=== PATIENT | female | born 1960 | race Caucasian/White ===

== ENCOUNTER 2016-07-21 09:39 | Emergency (ER) | payer OTHER ==
--- NOTE | 2016-07-21 11:46 | DIAGNOSTIC IMAGING REPORT ---
PROCEDURE: CT HEAD WITHOUT CONTRAST INDICATION: HEADACHE TECHNIQUE: Axial CT images were acquired through the head. Coronal and sagittal reformations were created. COMPARISON: None. FINDINGS: There is a large left middle cerebral artery infarction. There is mass effect with 1 cm of midline shift from left to right. There is early uncal herniation. The area of infarction involves one third of the left hemisphere. IMPRESSION: 1. Large left middle cerebral ischemic infarct with midline shift and uncal herniation 2. Findings discussed with Hamilton at 11:[address] scans at this facility use dose modulation, iterative reconstruction, and/or weight-based dosing when appropriate to reduce radiation dose to as low as reasonably achievable.
--- NOTE | 2016-07-21 11:48 | DIAGNOSTIC IMAGING REPORT ---
PROCEDURE: XR CHEST 2 VIEW INDICATION: COUGH TECHNIQUE: PA and lateral views. COMPARISON: Chest 01/03/2010 FINDINGS: Lungs are clear. Heart and mediastinum are normal. Thorax is normal. IMPRESSION: 1. Negative chest.
--- NOTE | 2016-07-21 12:03 | ED CLINICAL REPORT ---
Clinical Report - Physicians/Mid Levels [facility] [address] [place] [address] 07/21/2016 9:45 Patient: JOAQUIN CARRIZALES Time Seen: 10:35 Jul 21 2016. Arrived- By private vehicle. Historian- patient. CPT: Critical care < 74 min plus (#[id number]) and 30-74 min plus (#[id number]). HISTORY OF PRESENT ILLNESS Chief Complaint: HEADACHE. Is still present. 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 Onset during light activity. It is described as "pain". Located in the left hemicranial, left parietal and left temporal region. At its maximum, severity described as 8 / 10. When seen in the E.D., severity described as 8 / 10. Modifying factors: relieved by nothing. Not worsened by anything. No preceding symptoms, blurred vision, photophobia, associated nausea or numbness. No weakness or vomiting. (Pt has had flu symptoms over the past week including cough, sore throat, body aches and KRISHNAMURTHY. All the flu symptoms have faded except the KRISHNAMURTHY.). Similar symptoms previously: Milder. Diagnosis: headache (Chronic KRISHNAMURTHY). Recent medical care: Not recently seen/assessed. REVIEW OF SYSTEMS No fever, sinus pressure, ear pain, head injury or chest pain. No difficulty breathing, cough, abdominal pain, diarrhea or pain with urination. No skin rash, enlarged lymph nodes or back pain. The patient has had muscle aches and a sore throat. Confusion spell in [place] 2 months ago. Has appointment for this coming up. All systems otherwise negative, except as recorded above. PAST HISTORY Dementia. ADDITIONAL SURGERIES: Knee Surgery. Medications: None. Allergies: Narcotics. SOCIAL HISTORY Never smoker. No alcohol use or drug use. ADDITIONAL NOTES The nursing notes have been reviewed. PHYSICAL EXAM Vital Signs: 07/21/2016 09:51 BP: 139/60. HR: 73. RR: 14. O2 saturation: 100%. Temp: 97.7 F. Pain level now: 04/21. Appearance: Alert. Appears to be in pain. Patient in moderate distress. Eyes: Pupils equal, round and reactive to light. Eyes normal inspection. ENT: Ears normal. Nose normal. Pharynx normal. Neck: Normal inspection. Neck supple. CVS: Normal heart rate and rhythm. Heart sounds normal. Pulses normal. Respiratory: No respiratory distress. Breath sounds normal. Abdomen: Soft and nontender. No organomegaly. Back: Normal inspection. Skin: Skin warm. Normal skin color. No rash. Extremities: Extremities exhibit normal ROM. No lower extremity edema. Neuro: Oriented X 3. Alert. Mood/affect normal. Speech normal. Cranial nerves normal (as tested). No cerebellar findings. No motor deficit. No sensory deficit. Reflexes normal. NIH Stroke Scale: score 1. Level of Consciousness: drowsy (1). LOC Questions: both (0). LOC Commands: both (0). Best gaze: normal (0). Visual field loss: none (0). Facial palsy: normal (0). Limb ataxia: none (0). Sensory loss: none (0). Aphasia: none (0). Dysarthria: normal (0). LABS, X-RAYS, AND EKG Chest X-ray: Normal Chest X-Ray. CT Head: (Large left middle cerebral artery infarct: 1/3 of the hemisphere. Has 1 cm midline shift.). Head CT performed without contrast. The study was interpreted by the radiologist and discussed with the radiologist. Laboratory Tests: CBC w Diff: (JOSEPH: 07/21/2016 11:04) ( MsgRcvd 07/21/2016 11:38) Final results Test Result Flag Units (Reference) WHITE BLOOD COUNT 8.8 K/uL (4.5-11.5) RED BLOOD COUNT 4.67 M/uL (4.00-5.20) HEMOGLOBIN 13.6 gm/dL (12.0-16.0) HEMATOCRIT 41.0 % (36.0-46.0) MEAN CELL VOLUME 88 fL (80-100) MEAN CORPUSCULAR HGB 29 pg (26-34) MEAN CORPUSCULAR HGB CONC 33 g/dL (31-37) RED CELL DISTRIBUTION WIDTH 14.0 % (11.6-14.8) PLATELET COUNT 246 K/uL (150-400) NEUTROPHIL % 79.5 H % (50-75) LYMPH % 13.0 L % (25-40) MONO % 5.3 % (3-14) EOSINOPHIL % 1.9 % (0-4) BASOPHIL % 0.3 % (0-2) SED RATE WESTERGREN 45 H mm/hr (0-30) CHEM 13 PANEL: (JOSEPH: 07/21/2016 11:04) ( MsgRcvd 07/21/2016 11:35) Final results Test Result Flag Units (Reference) GLUCOSE 103 mg/dL (70-110) BUN 14 mg/dL (7-18) CREATININE 0.9 mg/dL (0.6-1.3) Estimated GFR >60 mL/min Estimated GFR- >60 mL/min Note: Persistent reduction over 3 months in eGFR<60 mL/min/1.73 m2 defines CKD. Patients with eGFR values>=60 mL/min/1.73 m2 may also have CKD if evidence ofpersistent proteinuria. Additional information may be foundat www.kidney.org. SODIUM 140 mmol/L (136-145) POTASSIUM 4.1 mmol/L (3.5-5.1) CHLORIDE 106 mmol/L (98-107) CARBON DIOXIDE 30 mmol/L (21-32) CALCIUM 8.4 L mg/dL (8.5-10.1) TOTAL PROTEIN 7.1 g/dL (6.4-8.2) ALBUMIN 3.4 g/dL (3.3-5.0) BILIRUBIN, TOTAL 0.5 mg/dL (0.0-1.0) ALKALINE PHOSPHATASE 70 U/L (46-116) AST (SGOT) 12 L U/L (15-37) ALT (SGPT) 24 U/L (12-78) MAGNESIUM 2.3 mg/dL (1.8-2.4) CPK 43 U/L (24-260) TROPONIN I <0.05 ng/mL (0.00-1.5) TROPONIN REFERENCE RANGE:<0.1 NEGATIVE0.1-1.5 INDETERMINANT>1.5 POSITIVE THYROID STIMULATING HORMONE 1.660 uIU/mL (0.30-3.74) Rapid Influenza Screen: (JOSEPH: 07/21/2016 11:32) ( MsgRcvd 07/21/2016 11:49) Final results SPECIMEN DESCRIPTION: SWAB Test Result Flag Units (Reference) RAPID INFLUENZA SCREEN DATE: 07/21/16 INFLUENZA A: NEGATIVE SCREEN FOR INFLUENZA A INFLUENZA B: NEGATIVE SCREEN FOR INFLUENZA B . PROGRESS AND PROCEDURES Course of Care: 12:23 07/21/16. Discussed with Dr Chau, stroke team fellow with Dr Santacruz. Will accept transfer after look at films and decide on air vs ground. 13:52 07/21/16. call back from [facility] with acceppting of transfer to the [facility]. Recommends ground transport. Recommends no steroids due to suspicion of lymphoma. Patient/family counseled. Disposition: Transferred to [facility]. CLINICAL IMPRESSION Large left MCA infarct with mid-line shift. (Electronically signed by Tommy Villasenor MD 07/22/2016 13:44)
--- NOTE | 2016-07-21 12:03 | ED NURSING NOTES ---
Clinical Report - Nurses [facility] [address] [place] [address] 07/21/2016 9:45 Patient: JOAQUIN CARRIZALES TRIAGE Triage time 0951 AM. Chief Complaint: HEADACHE. --09:57 Froy Coronado R.N. 09:51 07/21/16. BP: 139/60. HR: 73. RR: 14. O2 saturation: 100%. Temp: 97.7 F (oral). Pain level now: 04/21. --09:57 Froy Coronado R.N. Weight: 81.6 kg stated. Height/Length: 62 inches Per Patient. BMI: 32.9. --09:53 Froy Coronado R.N. Medications None. --09:54 Froy Coronado R.N. Allergies Narcotics. --09:56 Froy Coronado R.N. History Arrived by private vehicle. Historian: patient. Accompanied by family. This started about 4 days. ( Patient presents to the ED with symptoms of a left sided headache x 4 days.). 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 SOCIAL HX: Never smoker. Alcohol use. (no). History of drug use. (no). FALL RISK ASSESSMENT: Fall risk assessment completed. No fall risk identified. NUTRITIONAL RISK ASSESSMENT: The nutritional risk assessment revealed no deficiencies. FUNCTIONAL ASSESSMENT: Functional assessment: no impairments noted. LEARNING NEEDS ASSESSMENT: The learning needs assessment revealed no barriers. SKIN INTEGRITY ASSESSMENT: Skin integrity risk assessment completed. No skin integrity risk identified. --09:57 Froy Coronado R.N. PROBLEMS: Dementia. --09:56 Froy Coronado R.N. ADDITIONAL SURGERIES: Knee Surgery. --09:56 Froy Coronado R.N. PHYSICAL ASSESSMENT Ambulatory to room. GENERAL / NEURO / PSYCH: Alert. Oriented X 4. Appears in no acute distress. Speech within normal limits. ( "worsening dementia."). HEENT: No facial asymmetry noted. Pupils equal, round and reactive to light. RESPIRATORY: Respirations not labored. Breath sounds within normal limits. CVS: Capillary refill less than 2 seconds. GI / : Abdomen soft and nontender. SKIN: Skin is warm and dry. --09:57 Froy Coronado R.N. GENERAL / NEURO / PSYCH: Awake. Oriented X 4. Alert. Speech normal. Mood/affect normal. No cerebellar findings. NIH Stroke Scale: score 0. Performed at 0951 AM. Level of Consciousness: alert (0). LOC Questions: both (0). LOC Commands: both (0). Best gaze: normal (0). Visual field loss: none (0). Facial palsy: normal (0). Motor arm: no drift right arm (0) and no drift left arm (0). Motor leg: no drift right leg (0) and no drift left leg (0). Limb ataxia: none (0). Sensory loss: none (0). Aphasia: none (0). Dysarthria: normal (0). Extinction and inattention: none (0). --12:06 Froy Coronado R.N. NURSING PROGRESS NOTES 11:07/21/2016 Site #1 started via IV in the right antecubital space with an 18g angiocath; one attempt. Blood drawn. Labeled in the presence of the patient and sent to the lab. Saline lock flushed with 10 mL saline. --11:09 Froy Coronado R.N. 11:09 07/21/2016 Ativan (LORazepam) IVP 0.5 mg given over 2 minute(s) via site #1. Sedative warning given to the patient. IV patency established. IV site checked: no pain, redness, or swelling. IV flushed thoroughly pre- and post-medication administration. IVP given by RN. --11:09 Froy Coronado R.N. 11:48 07/21/16. BP: 117/69. HR: 73. RR: 16. O2 saturation: 99%. --11:49 Froy Coronado R.N. The patient is calm and resting quietly. Overall patient status is improved- she states feels better. --11:49 Froy Coronado R.N. The patient reports no complaints and she is calm, resting quietly and sleeping. Overall patient status is improved- she states feels better. GENERAL / NEURO / PSYCH: The patient reports left-sided headache is still present but improving and is currently constant. Alert. Oriented X 4. HEENT: Pupils equal, round and reactive to light. RESPIRATORY: No respiratory distress. SKIN: Skin is warm and dry. Skin color within normal limits. --12:09 Froy Coronado R.N. The patient is calm and resting quietly. GENERAL / NEURO / PSYCH: Alert. Oriented X 4. HEENT: Pupils equal, round and reactive to light. RESPIRATORY: No respiratory distress. SKIN: Skin is warm and dry. Skin color within normal limits. --12:47 Froy Coronado R.N. 12:47 07/21/16. BP: 132/61. HR: 72. RR: 16. O2 saturation: 99%. Pain level now: 04/21. --12:47 Froy Coronado R.N. Informed about reason for wait. --13:18 Noelle Eagle R.N. The patient is resting quietly and sleeping. Call light placed in reach. --13:19 Noelle Eagle R.N. 13:19 07/21/16. BP: 123/68. HR: 74. RR: 16. O2 saturation: 99%. --13:19 Noelle Eagle R.N. 13:59 07/21/16. BP: 135/80. HR: 70. RR: 16. O2 saturation: 98%. Pain level now: 04/21. --14:00 Froy Coronado R.N. The patient is calm, resting quietly and sleeping. GENERAL / NEURO / PSYCH: The patient reports headache. Alert. Oriented X 4. HEENT: Pupils equal, round and reactive to light. RESPIRATORY: No respiratory distress. SKIN: Skin is warm and dry. Skin color within normal limits. --14:00 Froy Coronado R.N. 14:56 07/21/2016 Ofirmev * IV 650mg --14:56 Froy Coronado R.N. DISPOSITION / DISCHARGE Departure time: 1452 PM. The goals identified in the patient's plan of care were met. Transferred to [facility]. Summary of care provided to transport team and transfer facility (1453 PM). Transported via ambulance by nurse, EMS and transport team with monitor and IV. ( Patient awake, alert, and oriented upon transport. Report given to AKBAR Peres with [facility].). --14:54 Froy Coronado R.N. Locked/Released at 07/21/2016 14:57 by Froy Coronado R.N.
--- NOTE | 2016-07-21 12:03 | ED CLINICAL REPORT ---
Clinical Report - Physicians/Mid Levels [facility] [address] [place] [address] 07/21/2016 9:45 Patient: JOAQUIN CARRIZALES Time Seen: 10:35 Jul 21 2016. Arrived- By private vehicle. Historian- patient. CPT: Critical care < 74 min plus (#[id number]) and 30-74 min plus (#[id number]). HISTORY OF PRESENT ILLNESS Chief Complaint: HEADACHE. Is still present. 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 Onset during light activity. It is described as "pain". Located in the left hemicranial, left parietal and left temporal region. At its maximum, severity described as 8 / 10. When seen in the E.D., severity described as 8 / 10. Modifying factors: relieved by nothing. Not worsened by anything. No preceding symptoms, blurred vision, photophobia, associated nausea or numbness. No weakness or vomiting. (Pt has had flu symptoms over the past week including cough, sore throat, body aches and KRISHNAMURTHY. All the flu symptoms have faded except the KRISHNAMURTHY.). Similar symptoms previously: Milder. Diagnosis: headache (Chronic KRISHNAMURTHY). Recent medical care: Not recently seen/assessed. REVIEW OF SYSTEMS No fever, sinus pressure, ear pain, head injury or chest pain. No difficulty breathing, cough, abdominal pain, diarrhea or pain with urination. No skin rash, enlarged lymph nodes or back pain. The patient has had muscle aches and a sore throat. Confusion spell in [place] 2 months ago. Has appointment for this coming up. All systems otherwise negative, except as recorded above. PAST HISTORY Dementia. ADDITIONAL SURGERIES: Knee Surgery. Medications: None. Allergies: Narcotics. SOCIAL HISTORY Never smoker. No alcohol use or drug use. ADDITIONAL NOTES The nursing notes have been reviewed. PHYSICAL EXAM Vital Signs: 07/21/2016 09:51 BP: 139/60. HR: 73. RR: 14. O2 saturation: 100%. Temp: 97.7 F. Pain level now: 04/21. Appearance: Alert. Appears to be in pain. Patient in moderate distress. Eyes: Pupils equal, round and reactive to light. Eyes normal inspection. ENT: Ears normal. Nose normal. Pharynx normal. Neck: Normal inspection. Neck supple. CVS: Normal heart rate and rhythm. Heart sounds normal. Pulses normal. Respiratory: No respiratory distress. Breath sounds normal. Abdomen: Soft and nontender. No organomegaly. Back: Normal inspection. Skin: Skin warm. Normal skin color. No rash. Extremities: Extremities exhibit normal ROM. No lower extremity edema. Neuro: Oriented X 3. Alert. Mood/affect normal. Speech normal. Cranial nerves normal (as tested). No cerebellar findings. No motor deficit. No sensory deficit. Reflexes normal. NIH Stroke Scale: score 1. Level of Consciousness: drowsy (1). LOC Questions: both (0). LOC Commands: both (0). Best gaze: normal (0). Visual field loss: none (0). Facial palsy: normal (0). Limb ataxia: none (0). Sensory loss: none (0). Aphasia: none (0). Dysarthria: normal (0). LABS, X-RAYS, AND EKG Chest X-ray: Normal Chest X-Ray. CT Head: (Large left middle cerebral artery infarct: 1/3 of the hemisphere. Has 1 cm midline shift.). Head CT performed without contrast. The study was interpreted by the radiologist and discussed with the radiologist. Laboratory Tests: CBC w Diff: (JOSEPH: 07/21/2016 11:04) ( MsgRcvd 07/21/2016 11:38) Final results Test Result Flag Units (Reference) WHITE BLOOD COUNT 8.8 K/uL (4.5-11.5) RED BLOOD COUNT 4.67 M/uL (4.00-5.20) HEMOGLOBIN 13.6 gm/dL (12.0-16.0) HEMATOCRIT 41.0 % (36.0-46.0) MEAN CELL VOLUME 88 fL (80-100) MEAN CORPUSCULAR HGB 29 pg (26-34) MEAN CORPUSCULAR HGB CONC 33 g/dL (31-37) RED CELL DISTRIBUTION WIDTH 14.0 % (11.6-14.8) PLATELET COUNT 246 K/uL (150-400) NEUTROPHIL % 79.5 H % (50-75) LYMPH % 13.0 L % (25-40) MONO % 5.3 % (3-14) EOSINOPHIL % 1.9 % (0-4) BASOPHIL % 0.3 % (0-2) SED RATE WESTERGREN 45 H mm/hr (0-30) CHEM 13 PANEL: (JOSEPH: 07/21/2016 11:04) ( MsgRcvd 07/21/2016 11:35) Final results Test Result Flag Units (Reference) GLUCOSE 103 mg/dL (70-110) BUN 14 mg/dL (7-18) CREATININE 0.9 mg/dL (0.6-1.3) Estimated GFR >60 mL/min Estimated GFR- >60 mL/min Note: Persistent reduction over 3 months in eGFR<60 mL/min/1.73 m2 defines CKD. Patients with eGFR values>=60 mL/min/1.73 m2 may also have CKD if evidence ofpersistent proteinuria. Additional information may be foundat www.kidney.org. SODIUM 140 mmol/L (136-145) POTASSIUM 4.1 mmol/L (3.5-5.1) CHLORIDE 106 mmol/L (98-107) CARBON DIOXIDE 30 mmol/L (21-32) CALCIUM 8.4 L mg/dL (8.5-10.1) TOTAL PROTEIN 7.1 g/dL (6.4-8.2) ALBUMIN 3.4 g/dL (3.3-5.0) BILIRUBIN, TOTAL 0.5 mg/dL (0.0-1.0) ALKALINE PHOSPHATASE 70 U/L (46-116) AST (SGOT) 12 L U/L (15-37) ALT (SGPT) 24 U/L (12-78) MAGNESIUM 2.3 mg/dL (1.8-2.4) CPK 43 U/L (24-260) TROPONIN I <0.05 ng/mL (0.00-1.5) TROPONIN REFERENCE RANGE:<0.1 NEGATIVE0.1-1.5 INDETERMINANT>1.5 POSITIVE THYROID STIMULATING HORMONE 1.660 uIU/mL (0.30-3.74) Rapid Influenza Screen: (JOSEPH: 07/21/2016 11:32) ( MsgRcvd 07/21/2016 11:49) Final results SPECIMEN DESCRIPTION: SWAB Test Result Flag Units (Reference) RAPID INFLUENZA SCREEN DATE: 07/21/16 INFLUENZA A: NEGATIVE SCREEN FOR INFLUENZA A INFLUENZA B: NEGATIVE SCREEN FOR INFLUENZA B . PROGRESS AND PROCEDURES Course of Care: 12:23 07/21/16. Discussed with Dr Chau, stroke team fellow with Dr Santacruz. Will accept transfer after look at films and decide on air vs ground. 13:52 07/21/16. call back from [facility] with acceppting of transfer to the [facility]. Recommends ground transport. Recommends no steroids due to suspicion of lymphoma. Patient/family counseled. Disposition: Transferred to [facility]. CLINICAL IMPRESSION Large left MCA infarct with mid-line shift. (Electronically signed by Tommy Villasenor MD 07/22/2016 13:44)
--- NOTE | 2016-07-21 12:03 | ED ORDER SUMMARY ---
..... Patient: JOAQUIN CARRIZALES OrderSheet [facility] VisitID: [id number] [place] [address] 55y, F Registration Date/Time: 07/21/2016 ORDER SHEET Weight: 81.6 kg (stated) Allergies: Narcotics GENERAL ORDERS: CT Head wo Cont Urgent (10:48 07/21/2016 Scooby SINGH) (Ack 10:59 NHouse ER Tech1) (11:09 HOShaughnessy R.N.) Cardiac Panel Stat (10:49 07/21/2016 Scooby SINGH) (Ack 10:59 NHouse ER Tech1) (11:09 HOShaughnessy R.N.) TSH Urgent (10:49 07/21/2016 Scooby SINGH) (Ack 10:59 COouse ER Tech1) (11:09 HOShaughnessy R.N.) ESR Urgent (10:49 07/21/2016 Scooby SINGH) (Ack 10:59 COouse ER Tech1) (11:09 HOShaughnessy R.N.) Rapid Influenza Screen (Nasal Pharyngeal) (swab) Urgent (10:49 07/21/2016 Scooby SINGH) (Ack 10:59 COouse ER Tech1) (11:35 HOShaughnessy R.N.) (11:35 COouse ER Tech1) Chest 2V Urgent (10:52 07/21/2016 Scooby SINGH) (Ack 10:59 COouse ER Tech1) (11:09 HOShaughnessy R.N.) PT with INR Urgent (12:15 07/21/2016 Scooby SINGH) (12:16 COouse ER Tech1) PTT Urgent (12:15 07/21/2016 Scooby SINGH) (12:16 COouse ER Tech1) MEDICATION ORDERS: - (Tylenol 650 mg IV) (14:32 07/21/2016 Scooby SINGH) (14:56 HOShaughnessguille R.N.) IV FLUIDS: Ativan IV 0.5 mg (NOW) (10:48 07/21/2016 Scooby SINGH) (11:09 HOShaughnessy R.N.) IV Saline Lock (10:49 07/21/2016 Scooby SINGH) (11:09 Dagmar Bermudez) ORDER SHEET NOTES: [Electronically signed by Froy Coronado R.N. (14:57 07/21/2016)] [Electronically signed by Tommy Villasenor MD (13:44 07/22/2016)] [Electronically locked/signed by Froy Coronado R.N. (14:57 07/21/2016)]
--- NOTE | 2016-07-21 12:03 | ED ORDER SUMMARY ---
..... Patient: JOAQUIN CARRIZALES OrderSheet [facility] VisitID: [id number] [place] [address] 55y, F Registration Date/Time: 07/21/2016 ORDER SHEET Weight: 81.6 kg (stated) Allergies: Narcotics GENERAL ORDERS: CT Head wo Cont Urgent (10:48 07/21/2016 Scooby SINGH) (Ack 10:59 NHouse ER Tech1) (11:09 HOShaughnessy R.N.) Cardiac Panel Stat (10:49 07/21/2016 Scooby SINGH) (Ack 10:59 NHouse ER Tech1) (11:09 HOShaughnessy R.N.) TSH Urgent (10:49 07/21/2016 Scooby SINGH) (Ack 10:59 MIouse ER Tech1) (11:09 HOShaughnessy R.N.) ESR Urgent (10:49 07/21/2016 Scooby SINGH) (Ack 10:59 MIouse ER Tech1) (11:09 HOShaughnessy R.N.) Rapid Influenza Screen (Nasal Pharyngeal) (swab) Urgent (10:49 07/21/2016 Scooby SINGH) (Ack 10:59 MIouse ER Tech1) (11:35 HOShaughnessy R.N.) (11:35 MIouse ER Tech1) Chest 2V Urgent (10:52 07/21/2016 Scooby SINGH) (Ack 10:59 MIouse ER Tech1) (11:09 HOShaughnessy R.N.) PT with INR Urgent (12:15 07/21/2016 Scooby SINGH) (12:16 MIouse ER Tech1) PTT Urgent (12:15 07/21/2016 Scooby SINGH) (12:16 MIouse ER Tech1) MEDICATION ORDERS: - (Tylenol 650 mg IV) (14:32 07/21/2016 Scooby SINGH) (14:56 HOShaughnessguille R.N.) IV FLUIDS: Ativan IV 0.5 mg (NOW) (10:48 07/21/2016 Scooby SINGH) (11:09 HOShaughnessy R.N.) IV Saline Lock (10:49 07/21/2016 Scooby SINGH) (11:09 Dagmar Bermudez) ORDER SHEET NOTES: [Electronically signed by Froy Coronado R.N. (14:57 07/21/2016)] [Electronically signed by Tommy Villasenor MD (13:44 07/22/2016)] [Electronically locked/signed by Froy Coronado R.N. (14:57 07/21/2016)]
--- NOTE | 2016-07-21 12:03 | ED NURSING NOTES ---
Clinical Report - Nurses [facility] [address] [place] [address] 07/21/2016 9:45 Patient: JOAQUIN CARRIZALES TRIAGE Triage time 0951 AM. Chief Complaint: HEADACHE. --09:57 Froy Coronado R.N. 09:51 07/21/16. BP: 139/60. HR: 73. RR: 14. O2 saturation: 100%. Temp: 97.7 F (oral). Pain level now: 04/21. --09:57 Froy Coronado R.N. Weight: 81.6 kg stated. Height/Length: 62 inches Per Patient. BMI: 32.9. --09:53 Froy Coronado R.N. Medications None. --09:54 Froy Coronado R.N. Allergies Narcotics. --09:56 Froy Coronado R.N. History Arrived by private vehicle. Historian: patient. Accompanied by family. This started about 4 days. ( Patient presents to the ED with symptoms of a left sided headache x 4 days.). 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 (800mg). SOCIAL HX: Never smoker. Alcohol use. (no). History of drug use. (no). FALL RISK ASSESSMENT: Fall risk assessment completed. No fall risk identified. NUTRITIONAL RISK ASSESSMENT: The nutritional risk assessment revealed no deficiencies. FUNCTIONAL ASSESSMENT: Functional assessment: no impairments noted. LEARNING NEEDS ASSESSMENT: The learning needs assessment revealed no barriers. SKIN INTEGRITY ASSESSMENT: Skin integrity risk assessment completed. No skin integrity risk identified. --09:57 Froy Coronado R.N. PROBLEMS: Dementia. --09:56 Froy Coronado R.N. ADDITIONAL SURGERIES: Knee Surgery. --09:56 Froy Coronado R.N. PHYSICAL ASSESSMENT Ambulatory to room. GENERAL / NEURO / PSYCH: Alert. Oriented X 4. Appears in no acute distress. Speech within normal limits. ( "worsening dementia."). HEENT: No facial asymmetry noted. Pupils equal, round and reactive to light. RESPIRATORY: Respirations not labored. Breath sounds within normal limits. CVS: Capillary refill less than 2 seconds. GI / : Abdomen soft and nontender. SKIN: Skin is warm and dry. --09:57 Froy Coronado R.N. GENERAL / NEURO / PSYCH: Awake. Oriented X 4. Alert. Speech normal. Mood/affect normal. No cerebellar findings. NIH Stroke Scale: score 0. Performed at 0951 AM. Level of Consciousness: alert (0). LOC Questions: both (0). LOC Commands: both (0). Best gaze: normal (0). Visual field loss: none (0). Facial palsy: normal (0). Motor arm: no drift right arm (0) and no drift left arm (0). Motor leg: no drift right leg (0) and no drift left leg (0). Limb ataxia: none (0). Sensory loss: none (0). Aphasia: none (0). Dysarthria: normal (0). Extinction and inattention: none (0). --12:06 Froy Coronado R.N. NURSING PROGRESS NOTES 11:07/21/2016 Site #1 started via IV in the right antecubital space with an 18g angiocath; one attempt. Blood drawn. Labeled in the presence of the patient and sent to the lab. Saline lock flushed with 10 mL saline. --11:09 Froy Coronado R.N. 11:09 07/21/2016 Ativan (LORazepam) IVP 0.5 mg given over 2 minute(s) via site #1. Sedative warning given to the patient. IV patency established. IV site checked: no pain, redness, or swelling. IV flushed thoroughly pre- and post-medication administration. IVP given by RN. --11:09 Froy Coronado R.N. 11:48 07/21/16. BP: 117/69. HR: 73. RR: 16. O2 saturation: 99%. --11:49 Froy Coronado R.N. The patient is calm and resting quietly. Overall patient status is improved- she states feels better. --11:49 Froy Coronado R.N. The patient reports no complaints and she is calm, resting quietly and sleeping. Overall patient status is improved- she states feels better. GENERAL / NEURO / PSYCH: The patient reports left-sided headache is still present but improving and is currently constant. Alert. Oriented X 4. HEENT: Pupils equal, round and reactive to light. RESPIRATORY: No respiratory distress. SKIN: Skin is warm and dry. Skin color within normal limits. --12:09 Froy Coronado R.N. The patient is calm and resting quietly. GENERAL / NEURO / PSYCH: Alert. Oriented X 4. HEENT: Pupils equal, round and reactive to light. RESPIRATORY: No respiratory distress. SKIN: Skin is warm and dry. Skin color within normal limits. --12:47 Froy Coronado R.N. 12:47 07/21/16. BP: 132/61. HR: 72. RR: 16. O2 saturation: 99%. Pain level now: 04/21. --12:47 Froy Coronado R.N. Informed about reason for wait. --13:18 Noelle Eagle R.N. The patient is resting quietly and sleeping. Call light placed in reach. --13:19 Noelle Eagle R.N. 13:19 07/21/16. BP: 123/68. HR: 74. RR: 16. O2 saturation: 99%. --13:19 Noelle Eagle R.N. 13:59 07/21/16. BP: 135/80. HR: 70. RR: 16. O2 saturation: 98%. Pain level now: 04/21. --14:00 Froy Coronado R.N. The patient is calm, resting quietly and sleeping. GENERAL / NEURO / PSYCH: The patient reports headache. Alert. Oriented X 4. HEENT: Pupils equal, round and reactive to light. RESPIRATORY: No respiratory distress. SKIN: Skin is warm and dry. Skin color within normal limits. --14:00 Froy Coronado R.N. 14:56 07/21/2016 Ofirmev * IV 650mg --14:56 Froy Coronado R.N. DISPOSITION / DISCHARGE Departure time: 1452 PM. The goals identified in the patient's plan of care were met. Transferred to [facility]. Summary of care provided to transport team and transfer facility (1453 PM). Transported via ambulance by nurse, EMS and transport team with monitor and IV. ( Patient awake, alert, and oriented upon transport. Report given to AKBAR Peres with [facility].). --14:54 Froy Coronado R.N. Locked/Released at 07/21/2016 14:57 by Froy Coronado R.N.
--- NOTE | 2016-07-22 13:45 | ED DISCHARGE INSTRUCTIONS ---
Patient: JOAQUIN CARRIZALES General Instructions [facility] VisitID: [id number] [address] [place] [address] 55y, F Registration Date/Time: 07/21/2016 Large left MCA infarct with mid-line shift. (Electronically signed by Tommy Villasenor MD 07/22/2016 13:44)
--- NOTE | 2016-07-22 13:45 | ED DISCHARGE INSTRUCTIONS ---
Patient: JOAQUIN CARRIZALES General Instructions [facility] VisitID: [id number] [address] [place] [address] 55y, F Registration Date/Time: 07/21/2016 Large left MCA infarct with mid-line shift. (Electronically signed by Tommy Villasenor MD 07/22/2016 13:44)
--- NOTE | 2016-07-22 13:45 | ED MAR SUMMARY ---
..... Medication Administration Record [facility] [address] [place] [address] Patient: JOAQUIN CARRIZALES Visit ID: [id number] 55y, F Weight: 81.6 kg Height/Length: 62 in BMI: 32.9 ALLERGIES: Narcotics Given 11:09 07/21/2016 Froy Coronado R.N. Medication Administered: ATIVAN [IVP] (LORAZEPAM), Dose: 0.5 mg IVP over 2 minute(s), Site: #1 right . Medication Ordered: Ativan IV 0.5 mg (NOW). Start 14:56 07/21/2016 Froy Coronado RCarol Medication Administered: Ofirmev *, Dose: 650mg * IV. Medication Ordered: - (Tylenol 650 mg IV).
--- NOTE | 2016-07-22 13:45 | ED MED RECONCILIATION SUMMARY ---
Patient: JOAQUIN CARRIZALES Medication Reconciliation Report [facility] VisitID: [id number] [address] [place] [address] 55y, F Registration Date/Time: 07/21/2016 Weight: 81.6 kg Height/Length: 62 in. BMI: 32.9 ALLERGIES: Narcotics The patient's Home Medications are listed below: NONE. The source(s) of the original Home Medication information: Not obtained. The following Medications were given to the patient in the Emergency Department: Ativan [IVP] IVP 0.5 mg, administered: 07/21/2016 11:09:00 AM Ofirmev IV bolus 0, then 650mg, administered: 07/21/2016 2:56:00 PM The following Medications were prescribed to the patient: None.
--- NOTE | 2016-07-22 13:45 | ED MED RECONCILIATION SUMMARY ---
Patient: JOAQUIN CARRIZALES Medication Reconciliation Report [facility] VisitID: [id number] [address] [place] [address] 55y, F Registration Date/Time: 07/21/2016 Weight: 81.6 kg Height/Length: 62 in. BMI: 32.9 ALLERGIES: Narcotics The patient's Home Medications are listed below: NONE. The source(s) of the original Home Medication information: Not obtained. The following Medications were given to the patient in the Emergency Department: Ativan [IVP] IVP 0.5 mg, administered: 07/21/2016 11:09:00 AM Ofirmev IV bolus 0, then 650mg, administered: 07/21/2016 2:56:00 PM The following Medications were prescribed to the patient: None.
--- NOTE | 2016-07-22 13:45 | ED MAR SUMMARY ---
..... Medication Administration Record [facility] [address] [place] [address] Patient: JOAQUIN CARRIZALES Visit ID: [id number] 55y, F Weight: 81.6 kg Height/Length: 62 in BMI: 32.9 ALLERGIES: Narcotics Given 11:09 07/21/2016 Froy Coronado R.N. Medication Administered: ATIVAN [IVP] (LORAZEPAM), Dose: 0.5 mg IVP over 2 minute(s), Site: #1 right . Medication Ordered: Ativan IV 0.5 mg (NOW). Start 14:56 07/21/2016 Froy Coronado RCarol Medication Administered: Ofirmev *, Dose: 650mg * IV. Medication Ordered: - (Tylenol 650 mg IV).
== END 2016-07-21 14:57 | disposition short-term general hospital (02) ==
LOC: ED SRH 09:39
DX: I63.512 Cerebral infarction due to unspecified occlusion or stenosis of left middle cerebral artery (principal); F03.90 Unspecified dementia, unspecified severity, without behavioral disturbance, psychotic disturbance, mood disturbance, and anxiety; Z88.5 Allergy status to narcotic agent
CPT/HCPCS: 90100; 90616; 91400; 92610; 92720; 93140; 94001; 94060; 95059; 95150

== ENCOUNTER 2017-01-23 12:43 | Emergency (ER) | payer OTHER ==
--- NOTE | 2017-01-23 13:35 | DIAGNOSTIC IMAGING REPORT ---
PROCEDURE: XR CHEST 1 VIEW INDICATION: SEIZURE TECHNIQUE: Portable AP view 01:12 p.m. COMPARISON: Chest 07/21/2016 FINDINGS: Lungs are clear. Heart and mediastinum are normal. Thorax is normal. IMPRESSION: 1. Negative chest.
--- NOTE | 2017-01-23 13:42 | DIAGNOSTIC IMAGING REPORT ---
PROCEDURE: CT HEAD WITHOUT CONTRAST INDICATION: SEIZURE TECHNIQUE: Axial CT images were acquired through the head. Coronal and sagittal reformations were created. COMPARISON: None. FINDINGS: There is encephalomalacia in the left temporal region from the previous left middle cerebral infarct. No evidence of hemorrhage. Recent craniotomy on the left. The calvarium is intact. The paranasal sinuses and mastoid air cells are normally aerated. The extracranial soft tissues and orbits are normal. IMPRESSION: 1. No CT evidence of acute intracranial process. 2. Encephalomalacia in the left middle cerebral territory 3. Findings discussed with Daisy at 01:[address] scans at this facility use dose modulation, iterative reconstruction, and/or weight-based dosing when appropriate to reduce radiation dose to as low as reasonably achievable.
--- NOTE | 2017-01-23 15:32 | ED ORDER SUMMARY ---
..... Patient: JOAQUIN CARRIZALES OrderSheet [facility] VisitID: [id number] [place] [address] 56y, F Registration Date/Time: 01/23/2017 ORDER SHEET Weight: 79.3 kg (stated) Allergies: Narcotics GENERAL ORDERS: Chest 1V Urgent (12:53 01/23/2017 Tiffany SINGH) (Ack 12:57 Luis E) (13:36 LWhalen R.N.) Heel Sprayer First (Continuous) (12:53 01/23/2017 Tiffany SINGH) (13:24 LWhalen R.N.) CT Head wo Cont Urgent (12:53 01/23/2017 Tiffany SINGH) (Ack 12:57 Luis E) (13:36 LWhalen R.N.) CBC w Diff Urgent (12:54 01/23/2017 Tiffany SINGH) (Ack 12:57 Luis E) (13:36 LWhalen R.N.) CMP Urgent (12:54 01/23/2017 Tiffany SINGH) (Ack 12:57 Luis E) (13:36 LWhalen R.N.) UA-Culture if indicated Urgent (12:54 01/23/2017 Tiffany SINGH) (Ack 12:57 Luis E) (13:36 LWhalen R.N.) Amylase Urgent (12:54 01/23/2017 Tiffany SINGH) (Ack 12:57 Luis E) (13:36 LWhalen R.N.) Lipase Urgent (12:54 01/23/2017 Tiffany SINGH) (Ack 12:57 Luis E) (13:36 LWhalen R.N.) Urine Drug Screen Urgent (12:54 01/23/2017 Tiffany SINGH) (Ack 12:57 Luis E) (15:55 LWhalen R.N.) CPK Urgent (12:54 01/23/2017 Tiffany SINGH) (Ack 12:57 Luis E) (13:36 LWhalen R.N.) Troponin-I Urgent (12:54 01/23/2017 Tiffany SINGH) (Ack 12:57 Luis E) (13:36 LWhalen R.N.) Seizure Precautions (12:54 01/23/2017 Tiffany SINGH) (13:24 LWhaldebi R.N.) Soft Restraints per protocol (12:54 01/23/2017 Tiffany SINGH) (13:24 LWhalen R.N.) Pulse oximeter (12:54 01/23/2017 Tiffany SINGH) (13:24 LWhalen R.N.) EKG - ER Stat (12:54 01/23/2017 Tiffany SINGH) (Ack 12:57 Luis E) (13:48 AMcQuoid ER Tech1) Ethyl Alcohol Urgent (12:54 01/23/2017 Tiffany SINGH) (Ack 12:57 Luis E) (13:36 LWhalen R.N.) MEDICATION ORDERS: Keppra PO 500 mg (NOW) (15:29 01/23/2017 Tiffany SINGH) (15:55 LWhalen R.N.) IV FLUIDS: IV NS : initial bolus 500 mL (1000 mL/hr), then 125 mL/hr for 4h (NOW); Urgent (12:53 01/23/2017 Tiffany SINGH) (13:37 LWhalen R.N.) Valium IV 5 mg (HIGH ALERT MEDICATION, NOW) (12:54 01/23/2017 Tiffany SINGH) (13:11 LWhalen R.N.) ORDER SHEET NOTES: [Electronically signed by Bernard Conklin R.N. (15:59 01/23/2017)] [Electronically signed by Chaparro Villa MD (13:23 01/24/2017)] [Electronically locked/signed by Bernard Conklin R.N. (15:59 01/23/2017)]
--- NOTE | 2017-01-23 15:32 | ED CLINICAL REPORT ---
Clinical Report - Physicians/Mid Levels [facility] [address] [place] [address] 01/23/2017 12:44 Patient: CRISTINA ZAMBRANO Time Seen: 12:48. Arrived- By ambulance. Historian- EMS personnel. Evaluation limited The history of her events was obtained later from her family after they arrived in the emergency room. History limited by post-ictal state. Physical Exam limited by post-ictal state. HISTORY OF PRESENT ILLNESS Chief Complaint: SEIZURE. This occurred just prior to arrival. The patient has recovered. Seizure was witnessed. Had a single isolated seizure. Seizure activity lasted minutes. The patient lost consciousness. Generalized motor activity observed. No incontinence. Post-ictally has had confusion and speech difficulty. No injuries noted. 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 Family reports this was done about 6 months ago. She has never had seizures before. REVIEW OF SYSTEMS Unobtainable due to patient's altered mental status. PAST HISTORY Problems: CVA - Cerebrovascular Accident. Dementia. Additional Surgeries: Knee Surgery. Medications: Cbd. Eso . Ip-6 and inusitol. Frankincense. Beta1,3Dglucan. Cassandra-C Oral. Probiotic Daily Oral. Melatonin ER Oral. Magnesium Oral. Focus . PIC 200 Oral. Tumeric/curcumin. Selenium Oral. Cell stop. Enzyme Digest Oral. Calcium & Magnesium Carbonates Oral. Vit D-Vit E-Safflower Oil External. Womens 50+ Multi Vitamin/Min Oral. None. Allergies: Narcotics. SOCIAL HISTORY Never smoker. No alcohol use or drug use. She lives with spouse and a family member. Has good social support. FAMILY HISTORY Unable to obtain family medical history due to patient's unresponsiveness. ADDITIONAL NOTES The nursing notes have been reviewed. PHYSICAL EXAM Vital Signs: 01/23/2017 12:46 BP: 141/49. HR: 121. RR: 18. O2 saturation: 97%. Temp: 98.2 F. Have been reviewed. Appearance: Alert. Eyes: Pupils equal, round and reactive to light. No nystagmus. ENT: Normal ENT inspection. Pharynx normal. Neck: Normal inspection. Neck supple. No carotid bruit. CVS: Normal heart rate and rhythm. Heart sounds normal. Respiratory: No respiratory distress. Breath sounds normal. Abdomen: Soft and nontender. No organomegaly. Back: Normal inspection. Skin: Skin warm and dry. Normal skin color. Normal skin turgor. Extremities: Extremities exhibit normal ROM. No calf tenderness. No lower extremity edema. Neuro: Alert. Severely altered mental status: confused and stuporous. Patient has no response. LABS, X-RAYS, AND EKG EKG: Rate: 87. sinus arrhythmia. Changes present when compared to prior EKG. (PACs at that time - 19 December 2009). Chest X-ray: Normal Chest X-Ray. CT Head: (Name: Cristina Zambrano : 1960 MR#: [id number] Ordering Provider: CHAPARRO VILLA Exam(s): CT HEAD WITHOUT CONTRAST Date of Exam: 01/23/2017 __ PROCEDURE: CT HEAD WITHOUT CONTRAST INDICATION: SEIZURE TECHNIQUE: Axial CT images were acquired through the head. Coronal and sagittal reformations were created. COMPARISON: None. FINDINGS: There is encephalomalacia in the left temporal region from the previous left middle cerebral infarct. No evidence of hemorrhage. Recent craniotomy on the left. The calvarium is intact. The paranasal sinuses and mastoid air cells are normally aerated. The extracranial soft tissues and orbits are normal. IMPRESSION: 1. No CT evidence of acute intracranial process. 2. Encephalomalacia in the left middle cerebral territory). The study was interpreted contemporaneously by me and discussed with the radiologist. Laboratory Tests: UA-Culture if indicated: (JOSEPH: 01/23/2017 13:50) ( MsgRcvd 01/23/2017 14:11) Final results Test Result Flag Units (Reference) URINE COLOR YELLOW URINE APPEARANCE CLEAR URINE GLUCOSE NEGATIVE (NEGATIVE) URINE BILIRUBIN NEGATIVE (NEGATIVE) URINE KETONE NEGATIVE (NEGATIVE) URINE SPECIFIC GRAVITY 1.025 (1.010-1.030) URINE PH 6.0 (5.0-8.0) URINE PROTEIN TRACE (NEGATIVE) URINE UROBILINOGEN 0.2 EU/dL (0.2-1.0) URINE NITRITE NEGATIVE (NEGATIVE) URINE BLOOD NEGATIVE (NEGATIVE) URINE LEUK ESTERASE NEGATIVE (NEGATIVE) URINE RBC RARE rbc/hpf (0-1) URINE WBC 1-3 wbc/hpf (0-1) URINE EPITHELIAL CELLS 1-3 EPI/hpf (0-5) URINE BACTERIA FEW (1+) (NONE SEEN) URINE COMMENT CULT NOT INDICATED 25-50 HYALINE CASTS. 1+ AMORPHOUS URATES.URINE CULTURES ARE SET-UP BASED ON THE FOLLOWING CRITERIA:POSITIVE NITRITEPOSITIVE LEUKOCYTE ESTERASEGREATER THAN 10 WHITE BLOOD CELLSMODERATE (2+) OR GREATER BACTERIA CBC w Diff: (JOSEPH: 01/23/2017 13:05) ( [facility] 01/23/2017 13:17) Final results Test Result Flag Units (Reference) WHITE BLOOD COUNT 4.6 K/uL (4.5-11.5) RED BLOOD COUNT 4.27 M/uL (4.00-5.20) HEMOGLOBIN 12.7 gm/dL (12.0-16.0) HEMATOCRIT 37.5 % (36.0-46.0) MEAN CELL VOLUME 88 fL (80-100) MEAN CORPUSCULAR HGB 30 pg (26-34) MEAN CORPUSCULAR HGB CONC 34 g/dL (31-37) RED CELL DISTRIBUTION WIDTH 14.0 % (11.6-14.8) PLATELET COUNT 153 K/uL (150-400) NEUTROPHIL % 68.5 % (50-75) LYMPH % 22.1 L % (25-40) MONO % 8.0 % (3-14) EOSINOPHIL % 0.8 % (0-4) BASOPHIL % 0.6 % (0-2) Urine Drug Screen: (JOSEPH: 01/23/2017 13:50) ( [facility] 01/23/2017 14:26) Final results Test Result Flag Units (Reference) AMPHETAMINE/METHAMPHETAMINE NEGATIVE (NEGATIVE) BARBITURATE NEGATIVE (NEGATIVE) BENZODIAZEPINE POSITIVE H (NEGATIVE) QNS FOR GC/MS CONFIRMATION. CANNABINOID POSITIVE H (NEGATIVE) COCAINE NEGATIVE (NEGATIVE) ECSTASY NEGATIVE (NEGATIVE) METHADONE NEGATIVE (NEGATIVE) OPIATE NEGATIVE (NEGATIVE) The urine drug screen is a qualitative screening test fordrug overdose and abuse. All screen results should beconsidered as presumptive.Drugs screened for are as follows:BenzodiazepinesCocaineAmphetamines/MetamphetaminesTHC (Tetrahydrocannabinol)OpiatesBarbituratesEcstasyMethadonePositive results are unconfirmed. For confirmation, notifythe lab for the specimen to be sent to the reference lab.All confirmations must be performed by a differentmethodology.The ingestion of natural herbal and plant productscontaining Ephedra/Ephedra metabolites can produce in urineone or more substances capable of cross reacting withamphetamine/methamphetamine immunoassays. These testsprovide a preliminary result only. A more specificalternative chemical method must be used to obtain aconfirmed analytical result. CMP: (JOSEPH: 01/23/2017 13:05) ( MsgRcvd 01/23/2017 13:34) Final results Test Result Flag Units (Reference) GLUCOSE 120 H mg/dL (70-110) BUN 10 mg/dL (7-18) CREATININE 0.9 mg/dL (0.6-1.3) Estimated GFR >60 mL/min Estimated GFR- >60 mL/min Note: Persistent reduction over 3 months in eGFR<60 mL/min/1.73 m2 defines CKD. Patients with eGFR values>=60 mL/min/1.73 m2 may also have CKD if evidence ofpersistent proteinuria. Additional information may be foundat www.kidney.org. SODIUM 141 mmol/L (136-145) POTASSIUM 3.4 L mmol/L (3.5-5.1) CHLORIDE 103 mmol/L (98-107) CARBON DIOXIDE 25 mmol/L (21-32) CALCIUM 8.5 mg/dL (8.5-10.1) TOTAL PROTEIN 6.6 g/dL (6.4-8.2) ALBUMIN 3.8 g/dL (3.3-5.0) BILIRUBIN, TOTAL 0.8 mg/dL (0.0-1.0) ALKALINE PHOSPHATASE 50 U/L (46-116) AST (SGOT) 15 U/L (15-37) ALT (SGPT) 22 U/L (12-78) LIPASE 113 U/L (73-393) AMYLASE 60 U/L (25-115) CPK 56 U/L (24-260) TROPONIN I <0.05 L ng/mL (0.00-1.5) TROPONIN REFERENCE RANGE:<0.1 NEGATIVE0.1-1.5 INDETERMINANT>1.5 POSITIVE ETHYL ALCOHOL <3 L mg/dL (3-10) . PROGRESS AND PROCEDURES Course of Care: Symptoms better. Vital signs have been reviewed. Physical exam findings are improved. Alert. No acute distress. Breath sounds normal. No respiratory distress. Normal heart rate and rhythm. Heart sounds normal. Abdomen soft and nontender. Skin warm and dry. Patient/family counseled. Old medical records reviewed. Disposition: Discharged. Condition: stable. CLINICAL IMPRESSION Seizure. INSTRUCTIONS No driving or operating machinery. Warnings: Further evaluation is necessary. TAKE SEIZURE MEDICATION INSTRUCTED. GENERAL WARNINGS: Return or contact your physician immediately if your condition worsens or changes unexpectedly, if not improving as expected, or if other problems arise. Your Current Medications: CONTINUE TAKING THE FOLLOWING MEDICATIONS: Magnesium Oral. CONTINUE TAKING THE FOLLOWING MEDICATIONS UNTIL YOU CHECK WITH YOUR PHYSICIAN: Beta1,3Dglucan*. Cbd*. Cell stop*. Enzyme Digest Oral. Eso *. Focus *. Frankincense*. Ip-6 and inusitol*. Melatonin ER Oral. PIC 200 Oral. Probiotic Daily Oral. Selenium Oral. Tumeric/curcumin*. Vit D-Vit E-Safflower Oil External. Cassandra-C Oral. Womens 50+ Multi Vitamin/Min Oral. Prescription Medications: Keppra 500 mg: take 1 tablet orally every 12 hours. Dispense thirty (30). No refills. Substitution is permissible. Follow-up: Follow up with a neurologist- as recommended by your primary care physician. Understanding of the discharge instructions verbalized by patient and family. Follow-up with: Ramiro De Guzman MD, [facility], , [facility], [address] [place] [address] Follow up in seven days. Call for the next available appointment. (Electronically signed by Chaparro Villa MD 01/24/2017 13:23)
--- NOTE | 2017-01-23 15:32 | ED ORDER SUMMARY ---
..... Patient: JOAQUIN CARRIZALES OrderSheet [facility] VisitID: [id number] [place] [address] 56y, F Registration Date/Time: 01/23/2017 ORDER SHEET Weight: 79.3 kg (stated) Allergies: Narcotics GENERAL ORDERS: Chest 1V Urgent (12:53 01/23/2017 Tiffany SINGH) (Ack 12:57 Luis E) (13:36 LWhalen R.N.) T[employer] (Continuous) (12:53 01/23/2017 Tiffany SINGH) (13:24 LWhalen R.N.) CT Head wo Cont Urgent (12:53 01/23/2017 Tiffany SINGH) (Ack 12:57 Luis E) (13:36 LWhalen R.N.) CBC w Diff Urgent (12:54 01/23/2017 Tiffany SINGH) (Ack 12:57 Luis E) (13:36 LWhalen R.N.) CMP Urgent (12:54 01/23/2017 Tiffany SINGH) (Ack 12:57 Luis E) (13:36 LWhalen R.N.) UA-Culture if indicated Urgent (12:54 01/23/2017 Tiffany SINGH) (Ack 12:57 Luis E) (13:36 LWhalen R.N.) Amylase Urgent (12:54 01/23/2017 Tiffany SINGH) (Ack 12:57 Luis E) (13:36 LWhalen R.N.) Lipase Urgent (12:54 01/23/2017 Tiffany SINGH) (Ack 12:57 Luis E) (13:36 LWhalen R.N.) Urine Drug Screen Urgent (12:54 01/23/2017 Tiffany SINGH) (Ack 12:57 Luis E) (15:55 LWhalen R.N.) CPK Urgent (12:54 01/23/2017 Tiffany SINGH) (Ack 12:57 Luis E) (13:36 LWhalen R.N.) Troponin-I Urgent (12:54 01/23/2017 Tiffany SINGH) (Ack 12:57 Luis E) (13:36 LWhalen R.N.) Seizure Precautions (12:54 01/23/2017 Tiffany SINGH) (13:24 LWhaldebi R.N.) Soft Restraints per protocol (12:54 01/23/2017 Tiffany SINGH) (13:24 LWhalen R.N.) Pulse oximeter (12:54 01/23/2017 Tiffany SINGH) (13:24 LWhalen R.N.) EKG - ER Stat (12:54 01/23/2017 Tiffany SINGH) (Ack 12:57 Luis E) (13:48 AMcQuoid ER Tech1) Ethyl Alcohol Urgent (12:54 01/23/2017 Tiffany SINGH) (Ack 12:57 Luis E) (13:36 LWhalen R.N.) MEDICATION ORDERS: Keppra PO 500 mg (NOW) (15:29 01/23/2017 Tiffany SINGH) (15:55 LWhalen R.N.) IV FLUIDS: IV NS : initial bolus 500 mL (1000 mL/hr), then 125 mL/hr for 4h (NOW); Urgent (12:53 01/23/2017 Tiffany SINGH) (13:37 LWhalen R.N.) Valium IV 5 mg (HIGH ALERT MEDICATION, NOW) (12:54 01/23/2017 Tiffany SINGH) (13:11 LWhalen R.N.) ORDER SHEET NOTES: [Electronically signed by Bernard Conklin R.N. (15:59 01/23/2017)] [Electronically signed by Chaparro Villa MD (13:23 01/24/2017)] [Electronically locked/signed by Bernard Conklin R.N. (15:59 01/23/2017)]
--- NOTE | 2017-01-23 15:32 | ED NURSING NOTES ---
Clinical Report - Nurses [facility] [address] [place] [address] 01/23/2017 12:44 Patient: JOAQUIN CARRIZALES TRIAGE Triage time 12:46 Jan 23 2017. Acuity: LEVEL 3. Chief Complaint: ALTERED MENTAL STATUS and (Possible seizure). SAWYER COMA SCORE: Sawyer Coma Scale: 15- eyes open spontaneously (4); best verbal response- oriented x 4 (5); best motor response- obeys commands (6). --12:55 Bernard Conklin R.N. 12:46 01/23/17. BP: 141/49. HR: 121. RR: 18. O2 saturation: 97%. Temp: 98.2 F. --12:55 Bernard Conklin R.N. Weight: 79.3 kg stated. Height/Length: 68 inches Per Patient. BMI: 26.6. --12:45 Bernard Conklin R.N. Medications None. --12:47 Bernard Conklin R.N. Womens 50+ Multi Vitamin/Min Oral. --13:59 Bernard Conklin R.N. Vit D-Vit E-Safflower Oil External. --13:59 Bernard Conklni R.N. Calcium & Magnesium Carbonates Oral. --13:59 Bernard Conklin R.N. Enzyme Digest Oral. --13:59 Bernard Conklin R.N. Cell stop. --14:00 Bernard Conklin R.N. Selenium Oral. --14:00 Bernard Conklin R.N. Tumeric/curcumin. --14:00 Bernard Conklin R.N. PIC 200 Oral. --14:01 Bernard Conklin R.N. Focus . --14:01 Bernard Conklin R.N. Magnesium Oral. --14:01 Bernard Conklin R.N. Melatonin ER Oral. --14:02 Bernard Conklin R.N. Probiotic Daily Oral. --14:02 Bernard Conklin R.N. Cassandra-C Oral. --14:02 Bernard Conklin R.N. Beta1,3Dglucan. --14:06 Bernard Conklin R.N. Frankincense. --14:07 Bernard Conklin R.N. Ip-6 and inusitol. --14:07 Bernard Conklin R.N. Eso . --14:07 Bernard Conklin R.N. Cbd. --14:07 Bernard Conklin R.N. Allergies Narcotics. --12:47 Bernard Conklin R.N. History Arrived by EMS. This started today. FALL RISK ASSESSMENT: Fall risk assessment completed. No fall risk identified. NUTRITIONAL RISK ASSESSMENT: The nutritional risk assessment revealed no deficiencies. FUNCTIONAL ASSESSMENT: Functional assessment: no impairments noted. LEARNING NEEDS ASSESSMENT: The learning needs assessment revealed no barriers. SKIN INTEGRITY ASSESSMENT: Skin integrity risk assessment completed. No skin integrity risk identified. --12:55 Bernard Conklin R.N. PROBLEMS: Dementia. --12:47 Bernard Conklin R.N. ADDITIONAL SURGERIES: Knee Surgery. --12:47 Bernard Conklin R.N. Interventions ID band on patient. --12:55 Bernard Conklin R.N. PHYSICAL ASSESSMENT late entry -12:46. To room via stretcher. ( Patient disoriented yelling and pulling at IV site and monitors. Patient unable to be redirected and patient trying to get up. Received orders for soft restraints. Placed patient in pose vest for her safety.). GENERAL / NEURO / PSYCH: Appears in distress. Decreased awareness. Speech within normal limits. Patient appears well-nourished and neat and clean. HEENT: Pupils equal, round and reactive to light. RESPIRATORY: Mild respiratory distress. ( fast rapid inspirations). CVS: Normal sinus rhythm noted. Capillary refill less than 2 seconds. GI / : Abdomen soft and nontender. Bowel sounds within normal limits. SKIN: Skin is warm and dry. Normal skin turgor. ( Bruising noted on left forearm). --14:25 Bernard Conklin R.N. NURSING PROGRESS NOTES 13:09 01/23/2017 Site #1 started via IV in the right antecubital space with an 20g angiocath, with aseptic technique and good blood return; one attempt. Blood drawn: rainbow set. Labeled in the presence of the patient and sent to the lab. Saline lock flushed with saline. --13:10 Bernard Conklin R.N. 13:11 01/23/2017 Valium (Diazepam) IVP 5 mg given over 2 minute(s) via site #1. Allergies verified, confirmed 5 rights and sedative warning given to the patient. IV patency established. IV site checked: no pain, redness, or swelling. IV flushed thoroughly pre- and post-medication administration. --13:11 Bernard Conklin R.N. 13:36 01/23/2017 Started bag #1 500 mL IV Fluids IV NS (Saline); at 1000 mL/hr over 999 hour(s) via site #1 via IV pump. Allergies verified and confirmed 5 rights. IV patency established. IV site checked: no pain, redness, or swelling. IV flushed thoroughly pre- and post-medication administration. --13:37 Bernard Conklin R.N. 13:43. EKG was performed by a tech and shown to the ED physician. --13:48 McQuoid, Maude, ER Tech1 14 fr in/out catheterization. Reason for indwelling catheter: patient's decreased level of consciousness. During procedure hand hygiene observed and sterile equipment and aseptic technique used. Return of 250 mL yellow-colored clear urine; odor is normal. She tolerated procedure well. --13:57 Bernard Conklin R.N. 13:32 01/23/2017 Site #2 started prior to arrival by EMS via IV in the left forearm with an 20g angiocath, with aseptic technique and good blood return; one attempt. Saline lock flushed with 10 mL saline. --13:57 Bernard Conklin R.N. The initial plan of care for this patient includes an assessment with efforts to address patient positioning, appropriate ambient lighting and comfortable environmental temperature; impairment of the neurological system. Oxygen administered by nasal cannula at 2 liters. documentation consultant, pulse oximeter and NIBP monitor placed on patient. Patient gowned. Head of bed elevated 45 degrees. Reassurance given. Seizure precautions initiated. Call light placed in reach. Side rails up x 2. Bed placed in lowest position. Brakes of bed on. --14:29 Bernard Conklin R.N. ( Family at bedside and redirecting mother when she gets agitated and starts pulling at lines.). --14:34 Bernard Conklin R.N. 15:24 01/23/17. BP: 112/62. HR: 101. RR: 16. O2 saturation: 95% on nasal cannula at 2 liters/minute. 15:00 01/23/17. BP: 118/64. HR: 100. RR: 18. O2 saturation: 94%. 14:30 01/23/17. BP: 115/60. HR: 100. RR: 27. O2 saturation: 94% on nasal cannula at 2 liters/minute. 14:00 01/23/17. BP: 116/51. HR: 85. RR: 22. O2 saturation: 99% on nasal cannula at 2 liters/minute. 13:30 01/23/17. BP: 107/53. HR: 90. RR: 17. O2 saturation: 98% on nasal cannula at 2 liters/minute. 13:15 01/23/17. BP: 112/62. HR: 90. RR: 20. O2 saturation: 95% on nasal cannula at 2 liters/minute. 13:00 01/23/17. BP: 116/44. HR: 124. RR: 18. O2 saturation: 88% on room air. --15:33 Bernard Conklin R.N. 15:50 01/23/2017 Keppra (LevETIRAcetam) PO Tablets 500 mg given. Allergies verified and confirmed 5 rights. --15:55 Bernard Conklin R.N. 15:50 01/23/2017 IV Fluids IV NS Discontinued: bag #1 infused upon discharge. Total amount infused: 700 mL. IV patency established. IV site checked: no pain, redness, or swelling. IV flushed thoroughly. --15:55 Bernard Conklin R.N. 15:51 01/23/2017 Site #1 removed upon discharge. Catheter intact. Pressure dressing applied. --15:56 Bernard Conklin R.N. 15:51 01/23/2017 Site #2 removed upon discharge. Catheter intact. Pressure dressing applied. --15:56 Bernard Conklin R.N. DISPOSITION / DISCHARGE Departure time: 15:50 Jan 23 2017. Condition at departure: improved. No learning barriers present. Discharge instructions provided and reviewed with the spouse. Reviewed warnings. Reviewed medication(s). Treatments reviewed. Reviewed referrals. Work note given. Spouse verbalized understanding. Written instructions provided in Panamanian. The patient was discharged home and accompanied by spouse. She left the Emergency Department in a wheelchair and via private vehicle. Spouse driving. --15:57 Bernard Conklin R.N. 15:56 01/23/17. BP: 115/60. HR: 86. RR: 18. O2 saturation: 100%. Temp: 98.6 F. Pain level now 0/10. --15:57 Bernard Conklin R.N. Locked/Released at 01/23/2017 15:59 by Bernard Conklin R.N.
--- NOTE | 2017-01-24 13:24 | ED MAR SUMMARY ---
..... Medication Administration Record [facility] [address] [place] [address] Patient: JOAQUIN CARRIZALES Visit ID: [id number] 56y, F Weight: 79.3 kg Height/Length: 68 in BMI: 26.6 ALLERGIES: Narcotics Given 13:11 01/23/2017 Bernard Conklin R.N. Medication Administered: VALIUM [IVP] (DIAZEPAM), Dose: 5 mg IVP over 2 minute(s), Site: #1 right AC. Medication Ordered: Valium IV 5 mg (HIGH ALERT MEDICATION, NOW). Start 13:36 01/23/2017 Bernard Conklin R.N., Stop 15:50 01/23/2017 Bernard Conklin R.N. Medication Administered: IV NS (SALINE), Dose: IV Fluids over 999 hour(s), Rate: 1000 mL/hr, Dispensed: 500 mL bag, Site: #1 right AC. Medication Ordered: IV NS : initial bolus 500 mL (1000 mL/hr), then 125 mL/hr for 4h (NOW); Urgent. Given 15:50 01/23/2017 Bernard Conklin R.N. Medication Administered: KEPPRA [PO] (LEVETIRACETAM), Dose: 500 mg Tablets PO. Medication Ordered: Keppra PO 500 mg (NOW).
--- NOTE | 2017-01-24 13:24 | ED DISCHARGE INSTRUCTIONS ---
Patient: JOAQUIN CARRIZALES General Instructions [facility] VisitID: [id number] [place] [address] 56y, F Registration Date/Time: 01/23/2017 Seizure. INSTRUCTIONS No driving or operating machinery. Warnings: Further evaluation is necessary. TAKE SEIZURE MEDICATION INSTRUCTED. GENERAL WARNINGS: Return or contact your physician immediately if your condition worsens or changes unexpectedly, if not improving as expected, or if other problems arise. Your Current Medications: CONTINUE TAKING THE FOLLOWING MEDICATIONS: Magnesium Oral. CONTINUE TAKING THE FOLLOWING MEDICATIONS UNTIL YOU CHECK WITH YOUR PHYSICIAN: Beta1,3Dglucan*. Cbd*. Cell stop*. Enzyme Digest Oral. Eso *. Focus *. Frankincense*. Ip-6 and inusitol*. Melatonin ER Oral. PIC 200 Oral. Probiotic Daily Oral. Selenium Oral. Tumeric/curcumin*. Vit D-Vit E-Safflower Oil External. Cassandra-C Oral. Womens 50+ Multi Vitamin/Min Oral. Prescription Medications: Keppra 500 mg: take 1 tablet orally every 12 hours. Dispense thirty (30). No refills. Substitution is permissible. Follow-up: Follow up with a neurologist- as recommended by your primary care physician. Understanding of the discharge instructions verbalized by patient and family. Follow-up with: Ramiro De Guzman MD, [facility], , [facility], [address] [place] [address] Follow up in seven days. Call for the next available appointment. ADDITIONAL INFORMATION Seizure:New Onset [Unknown Cause, Adult] You have had a seizure today. This results from a burst of electrical activity in the brain. A seizure can be due to many causes. It is often not possible to determine the exact cause of a seizure from a single exam and further testing may be needed. Having one seizure does not mean that you will continue to have seizures. However, until the cause of your seizure is known, it is best to assume that another seizure is possible. Home Care: For This Seizure: Since seizures are not predictable, you must avoid doing anything that might cause danger to you or others if you have another one. Therefore, do not drive a car, ride a bike or operate dangerous equipment, do not take a bath alone (use a shower instead), and do not swim alone until your doctor says that you are no longer in danger of having another seizure. Tell your close friends and relatives about your seizure and teach them what to do for you if it happens again. If you were prescribed a medicine to prevent seizures, take it exactly as directed. It does not work when taken on an "as needed" basis. Missing doses will increase the risk of having another seizure. For Future Seizures: If You Are Alone: If you feel a seizure coming on, the best thing to do is to lie down on a bed or on the floor with something soft under your head. Lie on your side, not on your back. This will prevent falling and permit drainage of fluid from the mouth to prevent choking. Be sure that you are clear of any objects that might injure you during the seizure. Call for help (911) if there is time. If Someone Is With You: If someone is with you before the seizure, they should help you get in a safe position and call for help (911). They should not try to force anything in your mouth once the seizure has begun. Doing this may cause injury to your teeth or jaw. After a seizure, you may be drowsy or confused. The person should remain with you until you are fully awake again. They should not offer anything to eat or drink during that time. Call 911 or go to the emergency department for further evaluation. Follow Up with your doctor as directed by our staff. Additional tests (brain wave tests or brain scans) may be ordered to help determine the cause of your seizure. Note: For the safety of yourself and others on the road, certain states require that the treating doctor inform the Public Health Department of any adult who is treated for a seizure and is at risk of further seizures. In this case, the Department of Motor Vehicles (DMV) will be notified and a restriction will be placed on your drivers license until a doctor gives you medical clearance to drive again. Contact your treating doctor to find out if your state requires the reporting of patients with a seizures condition. Get Prompt Medical Attention if any of the following occur: Another seizure Fever over 100.4F (38.0C) Unusual irritability, drowsiness or confusion Worsening headache or neck pain You have been given the following additional information: Seizure, New Onset, Unk Cause [Adult] No driving or operating machinery. (Electronically signed by Chaparro Villa MD 01/24/2017 13:23)
--- NOTE | 2017-01-24 13:24 | ED MED RECONCILIATION SUMMARY ---
Patient: JOAQUIN CARRIZALES Medication Reconciliation Report [facility] VisitID: [id number] [place] [address] 56y, F Registration Date/Time: 01/23/2017 Weight: 79.3 kg Height/Length: 68 in. BMI: 26.6 ALLERGIES: Narcotics The patient's Home Medications are listed below: CONTINUE TAKING THE FOLLOWING MEDICATIONS: Magnesium Oral CONTINUE TAKING THE FOLLOWING MEDICATIONS UNTIL YOU CHECK WITH YOUR PHYSICIAN: Beta1,3Dglucan Cbd Cell stop Enzyme Digest Oral Eso Focus Frankincense Ip-6 and inusitol Melatonin ER Oral PIC 200 Oral Probiotic Daily Oral Selenium Oral Tumeric/curcumin Vit D-Vit E-Safflower Oil External Cassandra-C Oral Womens 50+ Multi Vitamin/Min Oral THE FOLLOWING MEDICATIONS NEED TO BE RECONCILED: Calcium & Magnesium Carbonates Oral The source(s) of the original Home Medication information: Not obtained. The following Medications were given to the patient in the Emergency Department: Valium [IVP] IVP 5 mg, administered: 01/23/2017 1:11:00 PM IV NS IV Fluids bolus 0, then 1000 mL/hr, administered: 01/23/2017 1:36:00 PM Keppra [PO] PO 500 mg, administered: 01/23/2017 3:50:00 PM The following Medications were prescribed to the patient: Keppra 500 mg: take 1 tablet orally every 12 hours. Dispense thirty (30). No refills. Substitution is permissible. -- Chaparro Villa MD
--- NOTE | 2017-01-24 13:24 | ED MED RECONCILIATION SUMMARY ---
Patient: JOAQUIN CARRIZALES Medication Reconciliation Report Located [facility] VisitID: [id number] [place] [address] 56y, F Registration Date/Time: 01/23/2017 Weight: 79.3 kg Height/Length: 68 in. BMI: 26.6 ALLERGIES: Narcotics The patient's Home Medications are listed below: CONTINUE TAKING THE FOLLOWING MEDICATIONS: Magnesium Oral CONTINUE TAKING THE FOLLOWING MEDICATIONS UNTIL YOU CHECK WITH YOUR PHYSICIAN: Beta1,3Dglucan Cbd Cell stop Enzyme Digest Oral Eso Focus Frankincense Ip-6 and inusitol Melatonin ER Oral PIC 200 Oral Probiotic Daily Oral Selenium Oral Tumeric/curcumin Vit D-Vit E-Safflower Oil External Cassandra-C Oral Womens 50+ Multi Vitamin/Min Oral THE FOLLOWING MEDICATIONS NEED TO BE RECONCILED: Calcium & Magnesium Carbonates Oral The source(s) of the original Home Medication information: Not obtained. The following Medications were given to the patient in the Emergency Department: Valium [IVP] IVP 5 mg, administered: 01/23/2017 1:11:00 PM IV NS IV Fluids bolus 0, then 1000 mL/hr, administered: 01/23/2017 1:36:00 PM Keppra [PO] PO 500 mg, administered: 01/23/2017 3:50:00 PM The following Medications were prescribed to the patient: Keppra 500 mg: take 1 tablet orally every 12 hours. Dispense thirty (30). No refills. Substitution is permissible. -- Chaparro Villa MD
--- NOTE | 2017-01-24 13:24 | ED MAR SUMMARY ---
..... Medication Administration Record [facility] [address] [place] [address] Patient: JOAQUIN CARRIZALES Visit ID: [id number] 56y, F Weight: 79.3 kg Height/Length: 68 in BMI: 26.6 ALLERGIES: Narcotics Given 13:11 01/23/2017 Bernard Conklin R.N. Medication Administered: VALIUM [IVP] (DIAZEPAM), Dose: 5 mg IVP over 2 minute(s), Site: #1 right AC. Medication Ordered: Valium IV 5 mg (HIGH ALERT MEDICATION, NOW). Start 13:36 01/23/2017 Bernard Conklin R.N., Stop 15:50 01/23/2017 Bernard Conklin R.N. Medication Administered: IV NS (SALINE), Dose: IV Fluids over 999 hour(s), Rate: 1000 mL/hr, Dispensed: 500 mL bag, Site: #1 right AC. Medication Ordered: IV NS : initial bolus 500 mL (1000 mL/hr), then 125 mL/hr for 4h (NOW); Urgent. Given 15:50 01/23/2017 Bernard Conklin R.N. Medication Administered: KEPPRA [PO] (LEVETIRACETAM), Dose: 500 mg Tablets PO. Medication Ordered: Keppra PO 500 mg (NOW).
== END 2017-01-23 15:50 | disposition home or self-care (01) ==
LOC: ED SRH 12:43
DX: R56.9 Unspecified convulsions (principal); Z79.899 Other long term (current) drug therapy; Z88.5 Allergy status to narcotic agent
CPT/HCPCS: 90004; 90100; 90616; 92010; 92235; 92530; 92610; 92760; 92761; 92762; 92763; 92764; 92765; 92766; 92767; 95059